=== PATIENT | male | born 1985 | race Caucasian/White ===

== ENCOUNTER 2024-05-15 14:21 | Emergency (ER) | payer SELFPAY ==
[~2024-05-15] VITALS: Ht 180.3 cm; Wt 78.0 kg
[2024-05-15 14:22] VITALS: PULSE 81; RESP 18; TEMP 98.9
[2024-05-15] MEDS ORDERED: VALTREX1000 MG PO (14:56)
[2024-05-15] MEDS ORDERED: IBUPROFEN600 MG PO (14:57)
[2024-05-15 15:20] VITALS: BP 142/62; PULSE 84; RESP 17; TEMP 98.3; O2SAT 99
== END 2024-05-15 15:37 | disposition home or self-care (01) ==
LOC: FSED 14:45
DX: B02.29 Other postherpetic nervous system involvement (principal)
CPT/HCPCS: 99283